=== PATIENT | male | born 1945 | race Caucasian/White ===

== ENCOUNTER 2019-09-10 17:05 | Inpatient (IN) | payer MEDICARE, OTHER ==
[~2019-09-10] VITALS: Ht 170.2 cm; Wt 85.3 kg
[2019-09-10] MEDS ORDERED: BREO INH (17:17)
[2019-09-10] MEDS ORDERED: LISI2.5T PO (17:21)
[2019-09-10] MEDS ORDERED: FLUT9.9S NS (17:21)
[2019-09-10] MEDS ORDERED: Albuterol INH (17:21)
[2019-09-10] MEDS ORDERED: LOVA10TA PO (17:21)
[2019-09-10] MEDS ORDERED: LORA5TAB4 PO (17:21)
[2019-09-10] MEDS ORDERED: AMLO10TA8 PO (17:21)
--- NOTE | 2019-09-10 17:21 | NUR ---
PT SITTING IN BED, CXR, LAB, AND EKG TO BEDSIDE. PT O2 SAT REMAINS ABOVE 90 ON RA, HOWEVER INCREASE WOB NOTED. PT CURRENTLY ON 2L NC, O2 SAT 96%
[2019-09-10 17:37] LABS: BASOPHILS # (AUTO) 0.01 x10^3/uL (0-0.1); BASOPHILS % (AUTO) 0 % (0-1); EOSINOPHILS % (AUTO) 1 % (1-7); LYMPHOCYTES # (AUTO) 1.43 x10^3/uL (1-3.4); LYMPHOCYTES % (AUTO) 10 % (22-44); MD NO; MEAN CORPUSCULAR HEMOGLOBIN 32.1 pg (27.5-34.5); MEAN CORPUSCULAR HGB CONC 33.4 g/dL (33.2-36.2); MEAN PLATELET VOLUME 7.5 fL (7.4-10.4); MONOCYTES # (AUTO) 0.61 x10^3/uL (0.2-0.8); MONOCYTES % (AUTO) 4 % (2-9); NEUTROPHILS # (AUTO) 11.75 x10^3/uL (1.8-6.8); NEUTROPHILS % (AUTO) 84 % (42-75); PLATELET COUNT 188 x10^3/uL (130-400); RED BLOOD COUNT 4.46 x10^6/uL (4.38-5.82); RED CELL DISTRIBUTION WIDTH 13.5 % (9.4-14.8)
[2019-09-10 17:48] LABS: ALANINE AMINOTRANSFERASE 35 U/L (12-78); ALBUMIN 2.8 g/dL (3.4-5.0); ANION GAP 7 mmol/L (5-15); CALCIUM 8.3 mg/dL (8.5-10.1); CHLORIDE 106 mmol/L (98-107); CREATININE 0.93 mg/dL (0.7-1.3)
[2019-09-10 17:52] LABS: ALKALINE PHOSPHATASE 86 U/L (45-117); BILIRUBIN,TOTAL 0.8 mg/dL (0.2-1.0); TOTAL PROTEIN 6.8 g/dL (6.4-8.2)
[2019-09-10 17:54] LABS: TROPONIN I 0.534 ng/mL (0.000-0.045)
--- NOTE | 2019-09-10 17:59 | NUR ---
PT TO CT.
--- NOTE | 2019-09-10 18:12 | NUR ---
PT BACK FROM CT.
--- NOTE | 2019-09-10 18:14 | NUR ---
PT VOMITTED AT CT, BEFORE CONTRAST, WHEN MOVING FROM [facility]. PT DENIES FEELING NAUSEOUS NOW.
[2019-09-10] MEDS ORDERED: OMNIPAQUE 350 MG/ML, 100ML BOTTLE ONE (18:25)
--- NOTE | 2019-09-10 18:32 | NUR ---
pt at [facility] in [place], was tested for COVID 19 3 days ago, was negative. per erp, not going to test pt again.
[2019-09-10 18:57] LABS: INTERNATIONAL NORMALIZED RATIO 1.01 (0.93-1.1); PROTHROMBIN TIME 10.7 Seconds (9.6-11.5)
[2019-09-10] MEDS ORDERED: HEPARIN 5,000 UNITS/ML, 1ML IV PRN ×2 (19:00→22:30)
[2019-09-10] MEDS ORDERED: ONDANSETRON 2MG/ML, 2ML IVPush ONE (19:00)
[2019-09-10] MEDS ORDERED: PLEASE ENTER ALLERGIES MC SCH (19:00)
[2019-09-10] MEDS ORDERED: HEPARIN 5,000 UNITS/ML, 1ML IV ONE (19:00)
[2019-09-10] MEDS ORDERED: HEPARIN 25,000 UNITS/250ML PMX 250 ML IV PRN (19:00)
--- NOTE | 2019-09-10 19:13 | NUR ---
REPORT GIVEN TO JUWAN LOCKWOOD.
[2019-09-10] MEDS ORDERED: hydrALAzine 20 MG/ML, 1ML IVPush PRN (19:30)
[2019-09-10] MEDS ORDERED: ONDANSETRON 2MG/ML, 2ML IVPush PRN (19:30)
--- NOTE | 2019-09-10 19:43 | NUR ---
Pt given bag with home cpap and ipad. Pt informed [facility] not responisble for belongings.
[2019-09-10] MEDS ORDERED: LIDOCAINE 1%, 20ML ONE (19:50)
[2019-09-10] MEDS ORDERED: ALTEPLASE 10 MG in SODIUM CHLORIDE 0.9% 240 ML IV ONE ×2 (20:00→21:00)
[2019-09-10] MEDS ORDERED: HEPARIN 25,000 UNITS/250ML PMX 250 ML ONE (20:09)
[2019-09-10] MEDS ORDERED: LIDOCAINE 2%, 20ML ONE (20:40)
[2019-09-10] MEDS ORDERED: MIDAZOLAM 1 MG/ML, 5ML ONE (20:40)
[2019-09-10] MEDS ORDERED: FENTANYL PF 100 MCG/2ML ONE (20:40)
--- NOTE | 2019-09-10 20:43 | NUR ---
Pt transported to [facility]. Verbal report given to Margarita ECHEVERRIA.
[2019-09-10] MEDS ORDERED: SODIUM CHLORIDE 0.9% 1,000 ML IV SCH (21:29)
[2019-09-10] MEDS ORDERED: SODIUM CHLORIDE FLUSH 3ML SYRINGE IVF PRN (21:30)
[2019-09-10] MEDS ORDERED: MORPHINE SULFATE 4 MG/ML, 1ML IVPush PRN (21:30)
[2019-09-10 22:05] VITALS: BP 118/81
[2019-09-11] MEDS: HEPARIN 25,000 UNITS/250ML PMX 250 ML IV PRN ×2 (01:44→20:48)
[2019-09-11 02:23] LABS: MICROSCOPIC NOT IND
[2019-09-11 04:00] VITALS: BP 116/82
[2019-09-11 04:43] LABS: BASOPHILS # (AUTO) 0.03 x10^3/uL (0-0.1); BASOPHILS % (AUTO) 0 % (0-1); EOSINOPHILS # (AUTO) 0.06 x10^3/uL (0-0.4); EOSINOPHILS % (AUTO) 1 % (1-7); LYMPHOCYTES # (AUTO) 1.32 x10^3/uL (1-3.4); LYMPHOCYTES % (AUTO) 14 % (22-44); MD NO; MEAN CORPUSCULAR HGB CONC 33.3 g/dL (33.2-36.2); MEAN CORPUSCULAR VOLUME 96.2 fL (81-97); MEAN PLATELET VOLUME 7.8 fL (7.4-10.4); MONOCYTES # (AUTO) 0.66 x10^3/uL (0.2-0.8); MONOCYTES % (AUTO) 7 % (2-9); NEUTROPHILS # (AUTO) 7.61 x10^3/uL (1.8-6.8); NEUTROPHILS % (AUTO) 79 % (42-75); PLATELET COUNT 156 x10^3/uL (130-400); RED BLOOD COUNT 4.14 x10^6/uL (4.38-5.82); RED CELL DISTRIBUTION WIDTH 13.7 % (9.4-14.8)
[2019-09-11 04:53] LABS: ANION GAP 7 mmol/L (5-15); CALCIUM 8.3 mg/dL (8.5-10.1); CHLORIDE 106 mmol/L (98-107)
[2019-09-11 04:58] LABS: CREATININE 0.86 mg/dL (0.7-1.3)
[2019-09-11] MEDS ORDERED: HEPARIN 5,000 UNITS/ML, 1ML ONE (06:09)
[2019-09-11] MEDS: HEPARIN 5,000 UNITS/ML, 1ML IV PRN ×3 (06:12→20:47)
[2019-09-11] MEDS: BENZONATATE 100 MG CAPSULE PO SCH ×2 (08:56→16:15)
[2019-09-11 09:34] LABS: BASOPHILS # (AUTO) 0.03 x10^3/uL (0-0.1); BASOPHILS % (AUTO) 0 % (0-1); EOSINOPHILS # (AUTO) 0.03 x10^3/uL (0-0.4); EOSINOPHILS % (AUTO) 0 % (1-7); LYMPHOCYTES # (AUTO) 1.44 x10^3/uL (1-3.4); LYMPHOCYTES % (AUTO) 14 % (22-44); MD NO; MEAN CORPUSCULAR HEMOGLOBIN 31.8 pg (27.5-34.5); MEAN CORPUSCULAR HGB CONC 33.3 g/dL (33.2-36.2); MEAN CORPUSCULAR VOLUME 95.5 fL (81-97); MEAN PLATELET VOLUME 7.7 fL (7.4-10.4); MONOCYTES # (AUTO) 0.54 x10^3/uL (0.2-0.8); MONOCYTES % (AUTO) 5 % (2-9); NEUTROPHILS # (AUTO) 8.36 x10^3/uL (1.8-6.8); NEUTROPHILS % (AUTO) 80 % (42-75); PLATELET COUNT 170 x10^3/uL (130-400); RED BLOOD COUNT 4.36 x10^6/uL (4.38-5.82); RED CELL DISTRIBUTION WIDTH 13.5 % (9.4-14.8)
[2019-09-11 12:15] VITALS: BP 115/65
[2019-09-11 15:29] LABS: BASOPHILS # (AUTO) 0.03 x10^3/uL (0-0.1); BASOPHILS % (AUTO) 0 % (0-1); EOSINOPHILS # (AUTO) 0.07 x10^3/uL (0-0.4); EOSINOPHILS % (AUTO) 1 % (1-7); LYMPHOCYTES # (AUTO) 2.06 x10^3/uL (1-3.4); LYMPHOCYTES % (AUTO) 18 % (22-44); MD NO; MEAN CORPUSCULAR HEMOGLOBIN 32.2 pg (27.5-34.5); MEAN CORPUSCULAR HGB CONC 33.2 g/dL (33.2-36.2); MEAN PLATELET VOLUME 7.6 fL (7.4-10.4); MONOCYTES # (AUTO) 0.77 x10^3/uL (0.2-0.8); MONOCYTES % (AUTO) 7 % (2-9); NEUTROPHILS # (AUTO) 8.79 x10^3/uL (1.8-6.8); NEUTROPHILS % (AUTO) 75 % (42-75); PLATELET COUNT 178 x10^3/uL (130-400); RED BLOOD COUNT 4.62 x10^6/uL (4.38-5.82); RED CELL DISTRIBUTION WIDTH 13.8 % (9.4-14.8)
[2019-09-11] MEDS ORDERED: ALBUTEROL SULFATE 2.5 MG/3 ML NPPB PRN (16:00)
[2019-09-11 16:32] LABS: OCCULT BLOOD NEGATIVE (NEGATIVE)
[2019-09-11] MEDS: ALBUTEROL HFA 90 MCG/SPRAY INH PRN (20:51)
[2019-09-11 21:21] VITALS: BP 153/88
[2019-09-11] MEDS ORDERED: AMLODIPINE 5 MG TABLET PO ONE (22:00)
[2019-09-11] MEDS: LISINOPRIL 20 MG TABLET PO SCH (22:23)
[2019-09-11] MEDS: LORATADINE 10 MG TABLET PO SCH (22:23)
[2019-09-11] MEDS: SIMVASTATIN 20 MG TABLET PO SCH (22:23)
[2019-09-11] MEDS: FLUTICASONE NASAL SPRAY 16GM NAS SCH (22:23)
[2019-09-12 00:16] VITALS: BP 136/85
[2019-09-12] MEDS: BENZONATATE 100 MG CAPSULE PO SCH ×4 (00:16→20:32)
[2019-09-12 03:43] LABS: BASOPHILS # (AUTO) 0.03 x10^3/uL (0-0.1); BASOPHILS % (AUTO) 0 % (0-1); EOSINOPHILS # (AUTO) 0.05 x10^3/uL (0-0.4); EOSINOPHILS % (AUTO) 1 % (1-7); LYMPHOCYTES # (AUTO) 1.96 x10^3/uL (1-3.4); LYMPHOCYTES % (AUTO) 21 % (22-44); MD NO; MEAN CORPUSCULAR HEMOGLOBIN 31.9 pg (27.5-34.5); MEAN CORPUSCULAR HGB CONC 33.6 g/dL (33.2-36.2); MEAN CORPUSCULAR VOLUME 95.1 fL (81-97); MEAN PLATELET VOLUME 8.3 fL (7.4-10.4); MONOCYTES # (AUTO) 0.56 x10^3/uL (0.2-0.8); MONOCYTES % (AUTO) 6 % (2-9); NEUTROPHILS # (AUTO) 6.94 x10^3/uL (1.8-6.8); NEUTROPHILS % (AUTO) 73 % (42-75); PLATELET COUNT 151 x10^3/uL (130-400); RED BLOOD COUNT 3.94 x10^6/uL (4.38-5.82); RED CELL DISTRIBUTION WIDTH 13.6 % (9.4-14.8)
[2019-09-12 06:38] VITALS: BP 146/80
[2019-09-12] MEDS: FLUTICASONE NASAL SPRAY 16GM NAS SCH ×2 (08:12→08:14)
[2019-09-12] MEDS: LISINOPRIL 20 MG TABLET PO SCH ×2 (08:12→20:32)
[2019-09-12] MEDS: LORATADINE 10 MG TABLET PO SCH (08:12)
[2019-09-12] MEDS: APIXABAN 5 MG TABLET PO SCH ×2 (08:36→20:33)
[2019-09-12] MEDS ORDERED: APIXABAN 5 MG TABLET PO SCH (09:00)
[2019-09-12 11:40] LABS: BASOPHILS # (AUTO) 0.05 x10^3/uL (0-0.1); BASOPHILS % (AUTO) 1 % (0-1); EOSINOPHILS # (AUTO) 0.07 x10^3/uL (0-0.4); EOSINOPHILS % (AUTO) 1 % (1-7); LYMPHOCYTES # (AUTO) 1.48 x10^3/uL (1-3.4); LYMPHOCYTES % (AUTO) 17 % (22-44); MD NO; MEAN CORPUSCULAR HEMOGLOBIN 32.4 pg (27.5-34.5); MEAN CORPUSCULAR HGB CONC 33.8 g/dL (33.2-36.2); MEAN CORPUSCULAR VOLUME 95.6 fL (81-97); MEAN PLATELET VOLUME 7.8 fL (7.4-10.4); MONOCYTES # (AUTO) 0.62 x10^3/uL (0.2-0.8); MONOCYTES % (AUTO) 7 % (2-9); NEUTROPHILS # (AUTO) 6.42 x10^3/uL (1.8-6.8); NEUTROPHILS % (AUTO) 74 % (42-75); PLATELET COUNT 158 x10^3/uL (130-400); RED BLOOD COUNT 4.17 x10^6/uL (4.38-5.82); RED CELL DISTRIBUTION WIDTH 13.6 % (9.4-14.8)
[2019-09-12] MEDS: ALBUTEROL HFA 90 MCG/SPRAY INH PRN ×2 (12:04→20:42)
[2019-09-12 12:45] VITALS: BP 146/75
[2019-09-12] MEDS ORDERED: BUDESONIDE 0.5 MG/2 ML INHA NPPB PRN (13:00)
[2019-09-12] MEDS ORDERED: ALBUTEROL SULFATE 2.5 MG/3 ML NPPB SCH (13:00)
[2019-09-12] MEDS ORDERED: ALBUTEROL SULFATE 2.5 MG/3 ML NPPB PRN (13:00)
[2019-09-12 15:23] LABS: BASOPHILS # (AUTO) 0.03 x10^3/uL (0-0.1); BASOPHILS % (AUTO) 0 % (0-1); EOSINOPHILS % (AUTO) 1 % (1-7); LYMPHOCYTES # (AUTO) 1.68 x10^3/uL (1-3.4); LYMPHOCYTES % (AUTO) 18 % (22-44); MD NO; MEAN CORPUSCULAR HGB CONC 33.4 g/dL (33.2-36.2); MEAN PLATELET VOLUME 7.8 fL (7.4-10.4); MONOCYTES # (AUTO) 0.55 x10^3/uL (0.2-0.8); MONOCYTES % (AUTO) 6 % (2-9); NEUTROPHILS # (AUTO) 6.96 x10^3/uL (1.8-6.8); NEUTROPHILS % (AUTO) 75 % (42-75); PLATELET COUNT 172 x10^3/uL (130-400); RED BLOOD COUNT 4.32 x10^6/uL (4.38-5.82); RED CELL DISTRIBUTION WIDTH 13.4 % (9.4-14.8)
[2019-09-12 17:38] LABS: OCCULT BLOOD NEGATIVE (NEGATIVE)
[2019-09-12 20:26] VITALS: BP 165/85
[2019-09-12] MEDS: SIMVASTATIN 20 MG TABLET PO SCH (20:32)
[2019-09-12] MEDS ORDERED: BUDESONIDE 0.5 MG/2 ML INHA HHN SCH (21:00)
[2019-09-12] MEDS ORDERED: FLUTICASONE NASAL SPRAY 16GM NAS SCH (21:00)
[2019-09-12 21:28] LABS: BASOPHILS % (AUTO) 1 % (0-1); EOSINOPHILS # (AUTO) 0.12 x10^3/uL (0-0.4); EOSINOPHILS % (AUTO) 1 % (1-7); LYMPHOCYTES # (AUTO) 1.43 x10^3/uL (1-3.4); LYMPHOCYTES % (AUTO) 16 % (22-44); MD NO; MEAN CORPUSCULAR HEMOGLOBIN 32.1 pg (27.5-34.5); MEAN CORPUSCULAR HGB CONC 33.8 g/dL (33.2-36.2); MEAN CORPUSCULAR VOLUME 95.1 fL (81-97); MEAN PLATELET VOLUME 7.8 fL (7.4-10.4); MONOCYTES % (AUTO) 7 % (2-9); NEUTROPHILS # (AUTO) 6.69 x10^3/uL (1.8-6.8); NEUTROPHILS % (AUTO) 75 % (42-75); PLATELET COUNT 178 x10^3/uL (130-400); RED BLOOD COUNT 4.22 x10^6/uL (4.38-5.82); RED CELL DISTRIBUTION WIDTH 13.4 % (9.4-14.8)
[2019-09-13 02:11] VITALS: BP 153/92
[2019-09-13 04:14] LABS: BASOPHILS # (AUTO) 0.03 x10^3/uL (0-0.1); BASOPHILS % (AUTO) 0 % (0-1); EOSINOPHILS # (AUTO) 0.11 x10^3/uL (0-0.4); EOSINOPHILS % (AUTO) 1 % (1-7); LYMPHOCYTES # (AUTO) 1.24 x10^3/uL (1-3.4); LYMPHOCYTES % (AUTO) 16 % (22-44); MD NO; MEAN CORPUSCULAR HEMOGLOBIN 31.7 pg (27.5-34.5); MEAN CORPUSCULAR HGB CONC 33.5 g/dL (33.2-36.2); MEAN CORPUSCULAR VOLUME 94.8 fL (81-97); MEAN PLATELET VOLUME 7.9 fL (7.4-10.4); MONOCYTES # (AUTO) 0.61 x10^3/uL (0.2-0.8); MONOCYTES % (AUTO) 8 % (2-9); NEUTROPHILS # (AUTO) 5.74 x10^3/uL (1.8-6.8); NEUTROPHILS % (AUTO) 74 % (42-75); PLATELET COUNT 164 x10^3/uL (130-400); RED BLOOD COUNT 4.19 x10^6/uL (4.38-5.82); RED CELL DISTRIBUTION WIDTH 13.2 % (9.4-14.8)
[2019-09-13 04:24] LABS: ANION GAP 6 mmol/L (5-15); CALCIUM 8.3 mg/dL (8.5-10.1); CHLORIDE 107 mmol/L (98-107); CREATININE 0.74 mg/dL (0.7-1.3)
[2019-09-13] MEDS ORDERED: ALBUTEROL SULFATE 2.5 MG/3 ML NPPB PRN (07:00)
[2019-09-13 07:47] VITALS: BP 152/92
[2019-09-13] MEDS: LISINOPRIL 20 MG TABLET PO SCH (08:24)
[2019-09-13] MEDS: BENZONATATE 100 MG CAPSULE PO SCH (08:24)
[2019-09-13] MEDS: APIXABAN 5 MG TABLET PO SCH (08:24)
[2019-09-13] MEDS ORDERED: BUDESONIDE 0.5 MG/2 ML INHA NPPB SCH (09:00)
[2019-09-13] MEDS ORDERED: APIX5TAB PO ×3 (10:11→14:53)
[2019-09-13] MEDS ORDERED: LISI-170 PO (10:11)
[2019-09-13 13:38] VITALS: BP 159/87
[2019-09-13] MEDS ORDERED: LORATADINE 10 MG TABLET PO SCH (21:00)
[2019-09-19] MEDS ORDERED: APIXABAN 5 MG TABLET PO SCH (09:00)
== END 2019-09-13 16:58 | disposition home or self-care (01) | DRG 175 ==
LOC: ED 18:33 → EDIP 19:02 → CCU 21:48 → 5SO 09-11 09:47
PROVIDERS: ADMIT Internal Medicine; ATTEND Family Medicine
PROC: 02HR33Z Insertion of Infusion Device into Left Pulmonary Artery, Percutaneous Approach (ICD-10-PCS; principal; 2019-09-10)
PROC: 3E06317 Introduction of Other Thrombolytic into Central Artery, Percutaneous Approach (ICD-10-PCS; 2019-09-10)
PROC: 02HQ33Z Insertion of Infusion Device into Right Pulmonary Artery, Percutaneous Approach (ICD-10-PCS; 2019-09-10)
DX: I26.99 Other pulmonary embolism without acute cor pulmonale (principal); I21.A1 Myocardial infarction type 2; J96.01 Acute respiratory failure with hypoxia; I10 Essential (primary) hypertension; E78.5 Hyperlipidemia, unspecified; J45.40 Moderate persistent asthma, uncomplicated; Z20.828 Contact with and (suspected) exposure to other viral communicable diseases; Z85.51 Personal history of malignant neoplasm of bladder; Z82.49 Family history of ischemic heart disease and other diseases of the circulatory system; Z91.018 Allergy to other foods; Z79.899 Other long term (current) drug therapy; Z79.51 Long term (current) use of inhaled steroids; Z79.01 Long term (current) use of anticoagulants; Z87.891 Personal history of nicotine dependence; Z86.711 Personal history of pulmonary embolism
CPT/HCPCS: 36415; 37211; 71045; 71275; 80048; 80053; 81003; 82272; 83880; 84145; 84484; 85025; 85384; 85520; 85610; 85730; 87081; 93005; 93306; 94640; 96374; 99156; 99157; C1769; C1894; G0378; J1644; J2250; J3010; J7626; Q9967

== ENCOUNTER → 2019-11-16 | Outpatient (CLI) | payer MEDICARE ==
[~2019-11-16] MED LIST: AMLO10TA8 PO; APIX5TAB PO; Albuterol INH; BREO INH; FLUT9.9S NS; LISI-170 PO; LISI2.5T PO; LORA5TAB4 PO; LOVA10TA PO
== END | disposition home or self-care (01) ==
LOC: CFH 12:35
PROVIDERS: ATTEND Internal Medicine Cardiovascular Disease
DX: I21.4 Non-ST elevation (NSTEMI) myocardial infarction (principal); I10 Essential (primary) hypertension
CPT/HCPCS: 78452; 93017; A9502

== ENCOUNTER → 2020-12-25 | Outpatient (CLI) | payer MEDICARE ==
[~2020-12-25] MED LIST changes: +ALBU8.5H8 PO; +AMLO-150 PO; +AMLO-211 PO; -AMLO10TA8 PO; +ATOR20TA37 PO; +BENZ-17 PO; +CALC-451 PO; +CHOL10003 PO; +FLUT1DIS3 INH; +FLUT9.9S NAS; +LOSA50TA14 PO; +MELA5TAB14 PO; +MULT-449 PO
[2020-12-25 16:18] LABS: BASOPHILS % (AUTO) 1 % (0-1); EOSINOPHILS % (AUTO) 3 % (1-7); LYMPHOCYTES % (AUTO) 28 % (22-44); MEAN CORPUSCULAR HEMOGLOBIN 32.3 pg (27.5-34.5); MEAN CORPUSCULAR HGB CONC 34.2 g/dL (33.2-36.2); MEAN PLATELET VOLUME 7.8 fL (7.4-10.4); MONOCYTES % (AUTO) 10 % (2-9); NEUTROPHILS % (AUTO) 59 % (42-75); PLATELET COUNT 204 x10^3/uL (130-400); RED BLOOD COUNT 4.21 x10^6/uL (4.38-5.82); RED CELL DISTRIBUTION WIDTH 13.3 % (9.4-14.8)
[2020-12-25 16:29] LABS: ALANINE AMINOTRANSFERASE 24 U/L (12-78); ALBUMIN 3.3 g/dL (3.4-5.0); ANION GAP 3 mmol/L (5-15); CALCIUM 8.4 mg/dL (8.5-10.1); CHLORIDE 107 mmol/L (98-107); CREATININE 0.81 mg/dL (0.7-1.3)
[2020-12-25 16:31] LABS: ALKALINE PHOSPHATASE 77 U/L (45-117); BILIRUBIN,TOTAL 1.3 mg/dL (0.2-1.0); TOTAL PROTEIN 6.7 g/dL (6.4-8.2)
== END | disposition home or self-care (01) ==
LOC: STAR 15:21
PROVIDERS: ATTEND Urology
DX: Z01.818 Encounter for other preprocedural examination (principal); Z85.51 Personal history of malignant neoplasm of bladder; I51.7 Cardiomegaly
CPT/HCPCS: 36415; 80053; 85025; 87086; 93005

== ENCOUNTER 2020-12-31 09:44 | Day surgery (SDC) | payer MEDICARE ==
[~2020-12-31] VITALS: Ht 170.2 cm; Wt 86.5 kg
[~2020-12-31 09:44] MED LIST changes: +ACETAMINOPHEN 325 MG TABLET PO PRN; +EPHEDRINE 50 MG/ML, 1ML IVPush PRN; +FENTANYL PF 100 MCG/2ML IV PRN; +HYDROmorphone 1 MG/ML, 1ML INJ IVPush PRN; +LABETALOL 5MG/ML, 20ML IV PRN; +ONDANSETRON 2MG/ML, 2ML IVPush PRN; +OXYcodone 5 MG/5 ML ORAL.SOL UDC PO PRN; +PROMETHAZINE 25 MG/ML, 1ML IVPush PRN; +hydrALAzine 20 MG/ML, 1ML IV PRN
[2020-12-31 10:15] VITALS: BP 149/80
[2020-12-31] MEDS ORDERED: CHLORHEXIDINE 15 ML UDC PO ONE (10:30)
[2020-12-31] MEDS ORDERED: LACTATED RINGERS 1,000 ML IV SCH (10:30)
[2020-12-31] MEDS ORDERED: FENTANYL PF 100 MCG/2ML ONE (11:28)
[2020-12-31] MEDS ORDERED: SUGAMMADEX 200 MG/2 ML IVPush ONE (12:16)
[2020-12-31] MEDS ORDERED: SUCCINYLCHOLINE 20 MG/ML, 10ML ONE (12:16)
[2020-12-31] MEDS ORDERED: PROPOFOL 10 MG/ML, 20ML ONE (12:16)
[2020-12-31] MEDS ORDERED: DEXAMETHASONE 4 MG/ML, 1ML ONE (12:16)
[2020-12-31] MEDS ORDERED: ROCURONIUM 10MG/ML,5ML ONE (12:16)
[2020-12-31] MEDS ORDERED: CEFAZOLIN 1,000 MG ONE (12:16)
[2020-12-31] MEDS ORDERED: ONDANSETRON 2MG/ML, 2ML ONE (12:16)
[2020-12-31] MEDS ORDERED: GEMCITABINE HCL 1,000 MG in SODIUM CHLORIDE 0.9% 23.7 ML IS ONE (12:30)
[2020-12-31] MEDS ORDERED: EPHEDRINE 50 MG/ML, 1ML ONE (12:37)
== END 2020-12-31 15:20 | disposition home or self-care (01) ==
LOC: OUT 09:44
PROVIDERS: ATTEND Urology
DX: N32.89 Other specified disorders of bladder (principal); N30.80 Other cystitis without hematuria; N40.0 Benign prostatic hyperplasia without lower urinary tract symptoms; I10 Essential (primary) hypertension; E78.5 Hyperlipidemia, unspecified; J45.909 Unspecified asthma, uncomplicated; G47.33 Obstructive sleep apnea (adult) (pediatric); Z79.01 Long term (current) use of anticoagulants; Z79.899 Other long term (current) drug therapy; Z85.51 Personal history of malignant neoplasm of bladder; Z86.711 Personal history of pulmonary embolism; Z87.440 Personal history of urinary (tract) infections; Z88.8 Allergy status to other drugs, medicaments and biological substances
CPT/HCPCS: 51720; 52204; 88305; J0330; J0690; J1100; J2405; J2704; J3010; J7120

== ENCOUNTER → 2021-02-26 | Outpatient (CLI) | payer MEDICARE ==
[~2021-02-26] MED LIST changes: -ACETAMINOPHEN 325 MG TABLET PO PRN; -EPHEDRINE 50 MG/ML, 1ML IVPush PRN; -FENTANYL PF 100 MCG/2ML IV PRN; -HYDROmorphone 1 MG/ML, 1ML INJ IVPush PRN; -LABETALOL 5MG/ML, 20ML IV PRN; -LISI2.5T PO; +LISI2.5T12 PO; -ONDANSETRON 2MG/ML, 2ML IVPush PRN; -OXYcodone 5 MG/5 ML ORAL.SOL UDC PO PRN; -PROMETHAZINE 25 MG/ML, 1ML IVPush PRN; -hydrALAzine 20 MG/ML, 1ML IV PRN
== END | disposition home or self-care (01) ==
LOC: CFH 14:53
PROVIDERS: ATTEND Internal Medicine Clinical Cardiac Electrophysiology
DX: I08.8 Other rheumatic multiple valve diseases (principal); I11.9 Hypertensive heart disease without heart failure; Z86.711 Personal history of pulmonary embolism
CPT/HCPCS: 93306